=== PATIENT | female | born 1995 | race Caucasian/White ===

== ENCOUNTER 2025-07-08 15:22 | Inpatient (IN) | payer BC ==
[2025-07-08] MEDS ORDERED: Ondansetron PF 4 MG/2 ML Vial IVP PRN ×2 (16:07→17:18)
[2025-07-08] MEDS ORDERED: Diphenoxylate HCl/Atropine Tablet PO PRN ×2 (16:07)
[2025-07-08] MEDS ORDERED: Lidocaine 1% (PF) 30 ML VIAL SC PRN (16:07)
[2025-07-08] MEDS ORDERED: Methylergonovine 0.2 MG/ML VIAL IM PRN (16:07)
[2025-07-08] MEDS ORDERED: Ibuprofen 800 MG TAB PO PRN (16:07)
[2025-07-08] MEDS ORDERED: hydrALAZINE 20 MG/ML VIAL SLOW IVP PRN ×3 (16:07→22:01)
[2025-07-08] MEDS ORDERED: Carboprost 250 MCG/ML AMP IM PRN (16:07)
[2025-07-08] MEDS ORDERED: HYDROcodone/Acetaminophen 5/325 mg Tablet PO PRN ×3 (16:07→22:01)
[2025-07-08] MEDS ORDERED: Tranexamic Acid 1,000 MG/10 ML VIAL IVP PRN (16:07)
[2025-07-08] MEDS ORDERED: Oxytocin 30 units/NS 500 ML 500 ML IV SCH ×3 (16:15→22:01)
[2025-07-08] MEDS ORDERED: Penicillin G Potassium 5 MILL.UNITS in Sodium Chloride 0.9% 100 ML IVPB SCH (16:15)
[2025-07-08 16:29] LABS: Hematocrit 36.7 % (34.9-44.5); Hemoglobin 11.9 g/dL (12.0-15.5); Mean Corpuscular Hemoglobin 25.5 pg (27.0-33.0); Mean Corpuscular Volume 78.8 fL (81.6-98.3); Platelet Count 196 10x3/uL (150-450); Red Blood Cell (RBC) Count 4.66 10x6/uL (3.90-5.03); White Blood Cell (WBC) Count 8.81 10x3/uL (3.5-10.5)
[2025-07-08] MEDS: Penicillin G Potassium 5 MILL.UNITS VIAL ONE (16:42)
[2025-07-08] MEDS: fentaNYL/Ropivacaine Epidural 100 ML ONE (16:48)
[2025-07-08] MEDS ORDERED: diphenhydrAMINE 50 MG/ML VIAL IVP PRN (17:18)
[2025-07-08] MEDS ORDERED: Acetaminophen 325 MG TAB PO PRN (17:18)
[2025-07-08] MEDS ORDERED: Communication Order-Pharmacy FS SCH (17:30)
[2025-07-08] MEDS ORDERED: fentaNYL 2 mcg/Ropivacaine 0.2% Epidural 100 ML CADD EPIDURAL SCH (17:30)
[2025-07-08 17:33] LABS: Syphilis Antibody Index 0.09 S/CO (<1.00 Non-Reactive)
[2025-07-08 17:35] LABS: Hep B Surf Ag - L&D Non-Reactive S/CO (NonReactive)
[2025-07-08] MEDS: Oxytocin 30 units/NS 500 ML 500 ML IV SCH (18:23)
[2025-07-08] MEDS ORDERED: Penicillin G 2.5 MILL.units 2.5 MILL.UNITS in Premix 1 BAG IVPB SCH (20:30)
[2025-07-08] MEDS ORDERED: Milk Of Magnesia 30 ML UDCUP PO PRN (22:01)
[2025-07-08] MEDS ORDERED: Lanolin Ointment 7 GM TUBE TOP PRN (22:01)
[2025-07-08] MEDS ORDERED: Bisacodyl 10 MG SUPP PR PRN (22:01)
[2025-07-08] MEDS ORDERED: diphenhydrAMINE 25 MG CAP PO PRN (22:01)
[2025-07-08] MEDS ORDERED: Preparation H Ointment 28 GM TUBE PR PRN (22:01)
[2025-07-08] MEDS ORDERED: Benzocaine-Menthol 82.5 ML CAN TOP PRN (22:01)
[2025-07-08] MEDS: Ibuprofen 800 MG TAB PO SCH (22:48)
[2025-07-08 22:49] VITALS: BMI 36.9
[2025-07-09] MEDS: Boostrix 0.5 ML (Tdap) VIAL (>/=7 yrs of age) IM ONE (07:14)
[2025-07-09] MEDS: Ferrous Sulfate 325 MG TAB PO SCH (07:16)
[2025-07-09 19:58] VITALS: TEMP 98.3
[2025-07-10 14:50] VITALS: BP 123/79
== END 2025-07-10 11:45 | disposition home or self-care (01) | DRG 807 ==
LOC: CSHLD/OP 15:22 → CSHLD 16:08 → CSHPP 20:30
PROVIDERS: ADMIT Obstetrics & Gynecology; ATTEND Obstetrics & Gynecology
PROC: 10E0XZZ Delivery of Products of Conception, External Approach (ICD-10-PCS; principal; 2025-07-08)
PROC: 0KQM0ZZ Repair Perineum Muscle, Open Approach (ICD-10-PCS; 2025-07-08)
PROC: 4A1HXCZ Monitoring of Products of Conception, Cardiac Rate, External Approach (ICD-10-PCS; 2025-07-08)
PROC: 0UQMXZZ Repair Vulva, External Approach (ICD-10-PCS; 2025-07-08)
PROC: 3E03329 Introduction of Other Anti-infective into Peripheral Vein, Percutaneous Approach (ICD-10-PCS; 2025-07-08)
DX: O24.425 Gestational diabetes mellitus in childbirth, controlled by oral hypoglycemic drugs (principal); Z37.0 Single live birth; O99.824 Streptococcus B carrier state complicating childbirth; O70.1 Second degree perineal laceration during delivery; O71.82 Other specified trauma to perineum and vulva; Z3A.39 39 weeks gestation of pregnancy; Z79.899 Other long term (current) drug therapy
CPT/HCPCS: 36415; 36416; 51702; 85027; 86780; 86850; 86900; 86901; 87340; 99285; J2540; J2590